=== PATIENT | male | born 1975 | race Caucasian/White ===

== ENCOUNTER 2016-06-02 12:55 | Emergency (ER) | payer OTHER ==
[~2016-06-02] VITALS: Ht 182.9 cm; Wt 104.2 kg
[~2016-06-02 12:55] MED LIST: CELEXA40 MG PO; Cipro PO; Duragesic TD; PERCOCET 5/31 TABLET PO; Phenergan PO; TYLENOL REGULA325 MG PO; ZOFRAN ODT4 MG PO; Zofran IV; Zovirax PO; oxyCODONE PO
[2016-06-02 13:50] VITALS: BP 136/95
== END 2016-06-02 14:16 | disposition home or self-care (01) ==
LOC: EME → EDBD 12:55 → EME 12:55
DX: I47.1 Supraventricular tachycardia (principal); I10 Essential (primary) hypertension; Z85.6 Personal history of leukemia
CPT/HCPCS: 93005; 99281; 99283; J0153